=== PATIENT | male | born 2000 | race Two or more races ===

== ENCOUNTER 2025-06-13 21:01 | Emergency (ER) | payer BC, MEDICAID ==
[~2025-06-13] VITALS: Ht 177.8 cm; Wt 100.0 kg
[2025-06-13 21:03] VITALS: BP 127/86; PULSE 112; RESP 18; TEMP 98.2; O2SAT 96
[2025-06-13] MEDS ORDERED: TETANUS-DIPTH-ACEL PERTUSSIS 0.5ML SYR Tdap IM ONE (21:30)
[2025-06-13] MEDS ORDERED: KETOROLAC TROMETH 60MG/2ML VIAL IM ONE (21:30)
[2025-06-13] MEDS ORDERED: HYDROcodone-ACET 10/325MG TAB PO ONE (21:30)
--- NOTE | 2025-06-13 22:02 | DVH ---
EXAM: CT HEAD WITHOUT CONTRAST INDICATION: Facial trauma TECHNIQUE: CT of the head without intravenous contrast. Radiation Dose : 1. Head: CT Dose: CTDI volume is 62 mGy. Dose-length product is 12 17 mGy*cm The dose indicators for CT are the volume Computed Tomography (CT) Dose Index (CTDIvol) and the Dose Length Product (DLP), and are measured in units of mGy and mGy-cm, respectively. These indicators are not patient dose, but values generated from the CT scanner acquisition factors. The report includes radiation exposure data for exposures received during this examination. COMPARISON: None FINDINGS: Brain: No acute hemorrhage, mass effect, or cerebral edema. CSF Spaces: Size and morphology within normal limits. Bones/Soft Tissues: Minimal displacement of anterior nasal bones with soft tissue swelling. The calv arium is intact. Orbits/Sinuses/Mastoids: Unremarkable as visualized. IMPRESSION: 1. No acute intracranial abnormality. 2. Minimally displaced anterior nasal bone fracture. Radiation optimization: All CT scans at this facility use at least one of these dose optimization francisco hniques: automated exposure control mA and/or kV adjustment per patient size (includes targeted exam s where dose is matched to clinical indication) or iterative reconstruction.
--- NOTE | 2025-06-13 22:02 | DVH ---
EXAM: CT CERVICAL WITHOUT CONTRAST INDICATION: Head trauma EXAM DATE: 06/13/2025 09:25 PM COMPARISON: None TECHNIQUE: Multiple axial CT images of the cervical spine were obtained using bone algorithm. Axial a nd coronal reformatting was done. Bone and soft tissue windows were reviewed. Radiation Dose Information: 24.9 CT Dose: CTDI volume is mGy. Dose-length product is 652.97 mGy*cm FINDINGS: The cervical alignment is intact. No acute cervical spine fracture is identified. The vertebral body heights are intact. No suspicious osseous lesions are identified. No significant degenerative changes are identified. There is no prevertebral soft tissue swelling. IMPRESSION: 1. No evidence of acute cervical spine fracture or traumatic malalignment. All CT scans at this medical facility are performed using dose modulation techniques as appropriate t o a performed exam including the following: Automated exposure control was utilized; adjustment of th e MA and/or KV according to patient size; and use of iterative reconstruction technique.
--- NOTE | 2025-06-13 22:42 | ED.PDOC ---
Ravi. trauma (HPI) HPI Comments This patient is a 24-year-old male who arrives the ED today for evaluation of facial trauma sustained a proximally 1/2 hour prior to arrival. Patient states he was playing volleyball on a heart cord when he attempted to return of ball and landed on his face on the hardwood. Patient arrives with some nasal bridge bleeding. Nasal deformity appreciated. Patient denies any loss of consciousness. Patient was tachycardic at arrival. Chief Complaint: Fall Injury Time Seen by MD: 21:07 Reviewed notes: Nurses Notes, Director Of [employer] Notes Allergies: Coded Allergies: NO KNOWN ALLERGIES (Unverified , 06/13/25) Information Source: Patient, Emergency Med Personnel Mode of Arrival: Ambulatory Severity: Moderate Timing: Minutes Duration: Since onset Prehospital treatment: None Location: Face Location of laceration: Other (Bridge of nose) Mechanism: Blunt trauma, Fall Past Medical History PAST MEDICAL HISTORY: Denies Surgical History: Denies all surgeries Family History Family History: Reviewed,noncontributory to illness, No family hx of Cancer, No family hx of DM, No family hx of Heart lavelle, No family hx of HTN, No family hx ofKidney lavelle, No family hx of Liver lavelle, No family hx of Lung lavelle, No family hx of Stroke Social History Smoker: Non-Smoker Alcohol: Denies ETOH Use Drugs: Denies Drug Use Lives In: Home Constitutional: denies: chills, diaphoresis, fatigue, fever, malaise, sweats, weakness, others EENTM: reports: others (Facial trauma); denies: blurred vision, double vision, ear bleeding, ear discharge, ear drainage, ear pain, ear ringing, eye pain, eye redness, hearing loss, mouth pain, mouth swelling, nasal discharge, nose bleeding, nose congestion, nose pain, photophobia, tearing, throat pain, throat swelling, voice changes Respiratory: denies: cough, hemoptysis, orthopnea, SOB at rest, shortness of breath, SOB with excertion, stridor, wheezing, others Cardiovascular: denies: chest pain, dizzy spells, diaphoresis, Dyspnea on exertion, edema, irregular heart beat, left arm pain, lightheadedness, palpitations, PND, syncope, others Gastrointestinal: denies: abdomen distended, abdominal pain, blood streaked bowels, constipated, diarrhea, dysphagia, difficulty swallowing, hematemesis, melena, nausea, poor appetite, poor fluid intake, rectal bleeding, rectal pain, vomiting, others Genitourinary: denies: burning, dysuria, flank pain, frequency, hematuria, incontinence, penile discharge, penile sore, pain, testicle pain, testicle swelling, urgency, others Neurological: denies: dizziness, fainting, headache, left sided numbness, left sided weakness, numbness, paresthesia, pre-existing deficit, right sided numbness, right sided weakness, seizure, speech problems, tingling, tremors, weakness, others Musculoskeletal: denies: back pain, gout, joint pain, joint swelling, muscle pain, muscle stiffness, neck pain, others Integumetry: denies: bruises, change in color, change in hair/nails, dryness, laceration, lesions, lumps, rash, wounds, others Allergic/Immunocompromised: denies: Difficulty Healing, Frequent Infections, H yon, Itching, others Hematologic/Lymphatic: denies: anemia, blood clots, easy bleeding, easy bruising, swollen glands, others Endocrine: denies: excessive hunger, excessive sweating, excessive thirst, excessive urination, flushing, intolerance to cold, intolerance to heat, unexplained weight gain, unexplained weight loss, others Psychiatric: denies: anxiety, bipolar disorder, depression, hopeless, panic disorder, schizophrenia, sleepless, suicidal, others Physical Exam General Appearance: Moderate Distress (Moderate distress due to facial pain concerns.), Normal HEENT: Pharynx Normal, TMs Normal, Other (Patient displays a 5 mm oblique la ceration to the bridge of the nose with deformity noted. Contusion noted to central forehead. Crusted blood appreciated at left Bosch. No dental trauma appreciated.) Neck: Full Range of Motion, Non-Tender, Normal, Normal Inspection Respiratory: Chest Non-Tender, Lungs Clear, No Accessory Muscle Use, No Respiratory Distress, Normal Breath Sounds Cardiovascular: No Edema, No JVD, No Murmur, No Gallop, Normal Peripheral Pulses, Regular Rate/Rhythm Breast Exam: Deferred Gastrointestinal: No Organomegaly, Non Tender, No Pulsatile Mass, Normal Bowel Sounds, Soft Genitalia: Deferred Pelvic: Deferred Rectal: Deferred Extremities: No calf tenderness, Normal capillary refill, Normal inspection, No rmal range of motion, Non-tender, No pedal edema Neurologic: Alert, No Motor Deficits, Normal Affect, Normal Mood, No Sensory Deficits Cerebellar Function: NOT DONE Reflexes: NOT DONE Skin: Dry, Normal Color, Warm Lymphatic: No Adenopathy Was a procedure done? Was a procedure done?: Yes Sedation Sedation?: No Other Procedure Notes Copious irrigation performed and wound was approximated with Dermabond. Steri- Strips applied. Patient tolerated procedure well. Differential Diagnosis Multiple Trauma: Other (Facial trauma, nasal fracture, facial fracture, nasal laceration) X-Ray, Labs, Meds, VS Vital Signs Date Time Temp Pulse Resp B/P (MAP) Pulse Ox O2 Delivery O2 Flow Rate FiO2 06/13/25 21:03 98.2 112 18 127/86 96 98.2 X-Ray, Labs, Meds, VS Comment All studies performed the ED were evaluated by me personally. Imaging studies of the skull revealed a nasal fracture. No other facial fractures noted. Cervical spine series was unremarkable for any vertebrae fractures. Advised patient utilize antibiotics as directed and pain medication as needed. Time of 1ST Reevaluation: 23:13 Reevaluation 1ST: Improved Consultation: PCP Patient Education/Counseling: Diagnosis, Treatment Family Education/Counseling: Diagnosis, Treatment Departure 1 Departure Time of Disposition: 23:13 Impression: Primary Impression: Facial trauma Additional Impressions: Nasal bone fracture Facial laceration Disposition: HOME / SELF CARE / HOMELESS Condition: Stable Additional Instructions: Advised antibiotics as directed until completion as well as pain medication as needed. Ice therapy as tolerated. e-Prescriptions Hydrocodone-Acetaminophen (Hydrocodone Bitartrate/AC 5-325 mg) 1 Tab Tab 1 TAB PO Q6HP PRN, #12 TAB Prov: BLANCHE JASSO PAC 06/13/25 Ibuprofen Micronized (Ibuprofen) 800 Mg Tab 800 MG PO Q8HP PRN, #20 TAB Prov: BLANCHE JASSO PAC 06/13/25 Cephalexin (KEFLEX CAPSULE) 250 Mg Cp 1 CAP PO QID for 5 Days, #20 CAP Prov: BLANCHE JASSO PAC 06/13/25 Discharged With: Self, Friend Critical Care Note Critical Care Time?: No Stability Stability form required: No Heart Score Heart Score: Heart Score Response (Comments) Value History N/A 0 EKG N/A 0 Age N/A 0 Risk Factors N/A 0 Troponin N/A 0 Total 0 BLANCHE JASSO PAC Jun 13, 2025 22:41
[2025-06-13] MEDS ORDERED: HYDR-4902 PO (23:15)
[2025-06-13] MEDS ORDERED: CEPH250C PO (23:15)
[2025-06-13] MEDS ORDERED: IBUP-1455 PO (23:15)
== END 2025-06-14 02:08 | disposition home or self-care (01) ==
LOC: ER 21:01
DX: S02.2XXA Fracture of nasal bones, initial encounter for closed fracture (principal); S01.81XA Laceration without foreign body of other part of head, initial encounter; W22.03XA Walked into furniture, initial encounter; Y93.68 Activity, volleyball (beach) (court); Y92.89 Other specified places as the place of occurrence of the external cause; Y99.8 Other external cause status
CPT/HCPCS: 12011; 70450; 72125